=== PATIENT | male | born 1925 | race Caucasian/White ===

== ENCOUNTER → 2016-11-23 | Outpatient (CLI) | payer MEDICARE ==
[~2016-11-23] MED LIST: ARTANE2 MG PO; ASPIRIN ENTERIC81 M1 PO; ASPIRIN FOR CHI81 MG PO; ASPIRIN325 M2 PO; COREG6.25 MG PO; DELTASONE5 MG PO; FUROSEMIDE20 MG PO; K-Dur 20MEQ20 MEQ PO; LASIX20 MG PO; LASIX40 MG PO; LEVOTHYROXIN0.125 MG PO; LISINOPRIL10 M1 PO; LISINOPRIL2.5 MG PO; LOVASTATIN40 MG PO; MEDROL DOSEPAK4 MG PO; MILLIPRED5 MG PO; MYSOLINE50 MG PO; Mysoline50 MG PO; PROTONIX40 MG PO; PT DOESN'T KNOW MEDS; Percocet 325 MG1 TAB PO; SERTRALINE HYD100 MG PO; SYNTHROID0.125 MG PO; Synthroid,Lev125 MCG PO; TRAMADOL HCL50 MG PO; TRAZODONE50 MG PO; XARE15TA PO; XARE20MG PO; XARELTO10 MG PO; ZESTRIL,PRINIVIL5 MG PO; ZESTRIL5 MG PO; ZOCOR20 MG PO; ZOLOFT50 MG PO
[2016-11-23 13:28] LABS: BASO # 0.1 10*3/uL (0.0-0.1); BASO % 0.7 % (0.0-1.0); EOS # 0.4 10*3/uL (0.0-0.4); EOS % 5.8 % (1.0-4.0); HEMATOCRIT 41.3 % (42.0-52.0); HEMOGLOBIN 13.2 g/dl (14.0-18.0); LYMPH # 1.8 10*3/uL (1.3-4.4); LYMPH % 26.1 % (27.0-41.0); MEAN CELL VOLUME 87.9 fl (80.0-94.0); MEAN CORPUSCULAR HGB 28.1 pg (27.0-31.0); MEAN PLATELET VOLUME 10.5 fl (9.6-12.3); MONO # 0.8 10*3/uL (0.1-1.0); MONO % 11.7 % (3.0-9.0); NEUT # 3.8 10*3/uL (2.3-7.9); NEUT % 55.4 % (47.0-73.0); PLATELET COUNT AUTOMATED 181 10*3/uL (130-400); RED CELL DISTRI WIDTH 13.2 % (0-14.5); WHITE BLOOD COUNT 6.8 10*3/uL (4.8-10.8)
[2016-11-23 13:57] LABS: ALBUMIN 3.8 gm/dl (3.1-4.5); BILIRUBIN, TOTAL 1.6 mg/dl (0.2-1.0); POTASSIUM 3.7 mmol/L (3.5-5.1)
[2016-11-23 14:04] LABS: THYROID STIM HORMONE (HS) 1.68 uIU/ml (0.358-4.75)
[2016-11-24 07:08] LABS: HEPATITIS B SURFACE AB 006395 Non Reactive (.); HEPATITIS C VIRUS ANTIBODY <0.1 s/co (0.0-0.9)
== END | disposition home or self-care (01) ==
LOC: LAB 13:03
PROVIDERS: Internal Medicine
DX: I10 Essential (primary) hypertension (principal); R53.82 Chronic fatigue, unspecified; E03.9 Hypothyroidism, unspecified; E55.9 Vitamin D deficiency, unspecified; L30.8 Other specified dermatitis